=== PATIENT | female | born 1945 | race Caucasian/White ===

== ENCOUNTER 2017-10-19 19:15 | Emergency (ER) | payer MEDICARE, OTHER ==
[~2017-10-19] VITALS: Ht 165.1 cm; Wt 113.6 kg
[~2017-10-19 19:15] MED LIST: ACIDOPHILUS100 MG PO; ASPI-1265 PO; CIPR250T4 PO; EST1T PO; LEVO150T62 PO; OMEP40CA37 PO
[2017-10-19] MEDS ORDERED: HYDROcodone/acetaminophen 10/325mg tab PO ONE (22:20)
[2017-10-19] MEDS ORDERED: LIDOcaine 1.5% w/epinephrine 1:200,000 5ml ampul IJ ONE (22:20)
[2017-10-19] MEDS ORDERED: TETanus/Pertussis (Acell)/Diphther VAC/PF (Tdap-Adult) 0.5ml syringe IM ONE (22:20)
[2017-10-19] MEDS ORDERED: LORazepam 0.5 MG tablet PO PRN (22:20)
[2017-10-20 01:12] VITALS: BP 148/62
== END 2017-10-20 00:30 | disposition home or self-care (01) ==
LOC: ER 19:15
DX: S62.630A Displaced fracture of distal phalanx of right index finger, initial encounter for closed fracture (principal); S61.210A Laceration without foreign body of right index finger without damage to nail, initial encounter; I10 Essential (primary) hypertension; K21.9 Gastro-esophageal reflux disease without esophagitis; M19.90 Unspecified osteoarthritis, unspecified site; Z90.710 Acquired absence of both cervix and uterus; Z98.890 Other specified postprocedural states; Z88.5 Allergy status to narcotic agent; Z79.82 Long term (current) use of aspirin; Z79.899 Other long term (current) drug therapy; W23.0XXA Caught, crushed, jammed, or pinched between moving objects, initial encounter; Y93.89 Activity, other specified; Y92.89 Other specified places as the place of occurrence of the external cause; Y99.9 Unspecified external cause status
CPT/HCPCS: 12002; 29130; 73140; 90471; 90715; 99284; A6222; A6449; J3490

== ENCOUNTER 2020-01-11 10:21 | Emergency (ER) | payer MEDICARE, OTHER ==
[~2020-01-11] VITALS: Ht 165.1 cm; Wt 113.6 kg
[~2020-01-11 10:21] MED LIST changes: +OMEP40CA13 PO; -OMEP40CA37 PO
[2020-01-11] MEDS ORDERED: magnesium citrate 296ml oral solution PO ONE (10:30)
[2020-01-11] MEDS ORDERED: normal saline 1000ML IV soln IVB ONE (10:30)
[2020-01-11] MEDS ORDERED: methylnaltrexone br 12mg/0.6ml inj***SubQ only SQ ONE (10:30)
--- NOTE | 2020-01-11 12:58 | NUR ---
used one enema. not much result. hard to advance tube from soap lisa enema due to impaction. digital disempaction and pulled out about a softball size of stool. inserted another round of an enema and waiting for results.
[2020-01-11 12:59] VITALS: BP 148/76
== END 2020-01-11 15:36 | disposition home or self-care (01) ==
LOC: ER 10:22
DX: K59.03 Drug induced constipation (principal); I10 Essential (primary) hypertension; K21.9 Gastro-esophageal reflux disease without esophagitis; E07.9 Disorder of thyroid, unspecified; M19.90 Unspecified osteoarthritis, unspecified site; Z90.710 Acquired absence of both cervix and uterus; Z98.890 Other specified postprocedural states; Z88.6 Allergy status to analgesic agent; Z79.82 Long term (current) use of aspirin; Z79.1 Long term (current) use of non-steroidal anti-inflammatories (NSAID); Z79.899 Other long term (current) drug therapy
CPT/HCPCS: 74018; 96360; 96361; 96372; 99284; J2212; J7030